=== PATIENT | female | born 1980 | race Caucasian/White ===

== ENCOUNTER 2018-03-04 13:31 | Emergency (ER) | payer MEDICAID ==
[~2018-03-04] VITALS: Ht 172.7 cm; Wt 59.0 kg
== END 2018-03-04 15:25 | disposition home or self-care (01) ==
LOC: ED 13:31
DX: F22 Delusional disorders (principal); Z91.040 Latex allergy status
CPT/HCPCS: 99283

== ENCOUNTER 2019-11-17 15:20 | Emergency (ER) | payer OTHER ==
[~2019-11-17] VITALS: Ht 172.7 cm; Wt 77.1 kg
--- OUTSIDE RECORDS SUMMARY | 2019-11-17 15:22 | XMS ---
PreManage Notification: ARMANDO KING Security Community Engagement Representative Events No recent Security Events currently on file CRITERIA MET - Group Notification CARE PROVIDERS [facility] Current PHONE: [phone] Drea Cross Primary [facility] Current PHONE: [phone] MANJEET LANTIGUANEA [facility] PHONE: Unknown Care Guidelines exist for the following facilities: [facility] ( 04/28/2019 ) Care History Medical/Surgical 10/15/2017 [facility] ADHD (attention deficit hyperactivity disorder) Anxiety Depression PTSD (post-traumatic stress disorder) Substance Use/Overdose 10/15/2017 [facility] Pt has hx of cocaine abuse. E.D. VISIT COUNT (12 MO.) 1 [facility] TOTAL 1 NOTE: Visits indicate total known visits. ED/UCC VISIT TRACKING (12 MO.) 11/17/2019 15:21 [facility] [place] TYPE: Emergency COMPLAINT: - STRANGE FEELING IN HEAD INPATIENT VISIT TRACKING (12 MO.) No inpatient visits to display in this time frame [id number]
[2019-11-17] MEDS ORDERED: RITALIN10 MG PO (15:32)
[2019-11-17] MEDS ORDERED: ABILIFY30 MG PO (15:32)
[2019-11-17] MEDS ORDERED: SEROQUEL XR200 MG PO (15:32)
== END 2019-11-17 16:21 | disposition left against medical advice (07) ==
LOC: ED 15:20
DX: Z53.21 Procedure and treatment not carried out due to patient leaving prior to being seen by health care provider (principal)

== ENCOUNTER 2020-05-22 23:19 | Emergency (ER) | payer OTHER ==
[~2020-05-22] VITALS: Ht 172.7 cm; Wt 68.0 kg
--- OUTSIDE RECORDS SUMMARY | ~2020-05-22 | XMS | Encounter Summary ---
Demographics + + + | Address | [address] | | | [place] [address] | + + + | Home Phone | | + + + | Preferred Language | Unknown | + + + | Marital Status | Single | + + + | Nondenominational Affiliation | NRP | + + + | Race | White | + + + | Ethnic Group | Not or | + + + Author + + + | Author | [facility] | + + + | Organization | [facility] | + + + | Address | Unknown | + + + | Phone | Unavailable | + + + Support + + +---------+ + | Name | Relationship | Address | Phone | + + +---------+ + | Agatha Patrick | ECON | Unknown | | + + +---------+ + Care Team Providers + +------+ + | Care C Developer Name | Role | Phone | + +------+ + | Drea Cross DO | PCP | | + +------+ + Reason for Visit + + + | Reason | Comments | + + + | Psychiatric | | | Evaluation | | + + + AUTH/CERT +--------+--------+ + + + + | Status | Reason | Specialty | Diagnoses / | Referred By | Referred To | | | | | Procedures | Contact | Contact | +--------+--------+ + + + + | | | | | | | +--------+--------+ + + + + Encounter Details +--------+ + + + + | Date | Type | Department | Care Team | Description | +--------+ + + + + | 10/22/ | Emergency | [facility] Emergency | Mariely Luna MD | | | 2017 | | Department [address] [facility] | | | | | [facility] | | | | [facility] | [place], [place] | | | | | [place], [place] | [address] | | | | | [address] | [phone] | | | | | [phone] | | | +--------+ + + + + Social History + +-------+ +--------+------+ | Tobacco Use | Types | Packs/Day | Years | Date | | | | | Used | | + +-------+ +--------+------+ | Never Assessed | | | | | + +-------+ +--------+------+ + + + | Sex Assigned at | Date Recorded | | | | + + + | Not on file | | + + + + + + + | Job Start Date | Occupation | Industry | + + + + | Not on file | Not on file | Not on file | + + + + + + + + | Travel History | Travel Start | Travel End | + + + + + + | No recent travel history available. | + + documented as of this encounter Last Filed Vital Signs + + + + + | Vital Sign | Reading | Time Taken | Comments | + + + + + | Blood Pressure | 112/95 | 10/22/2017 5:40 AM | | | | | PST | | + + + + + | Pulse | 102 | 10/22/2017 5:40 AM | | | | | PST | | + + + + + | Temperature | 36.8 C (98.3 F) | 10/22/2017 5:40 AM | | | | | PST | | + + + + + | Respiratory Rate | 14 | 10/22/2017 5:40 AM | | | | | PST | | + + + + + | Oxygen Saturation | 97% | 10/22/2017 5:40 AM | | | | | PST | | + + + + + | Inhaled Oxygen | - | - | | | Concentration | | | | + + + + + | Weight | 49.9 kg (110 lb) | 10/22/2017 5:40 AM | | | | | PST | | + + + + + | Height | - | - | | + + + + + | Body Mass Index | - | - | | + + + + + documented in this encounter Medications at Time of Discharge + + + +---------+--------+ + | Medication | Sig | Dispensed | Refills | Start | End Date | | | | | | Date | | + + + +---------+--------+ + | acyclovir 200 mg | Take 200 mg by mouth | | 0 | | | | oral capsule | five times daily. | | | | | + + + +---------+--------+ + | ARIPiprazole 5 mg | Take 5 mg by mouth | | 0 | | | | oral tablet | once daily. | | | | | + + + +---------+--------+ + documented as of this encounter Plan of Treatment Not on filedocumented as of this encounter Procedures + +--------+ + + + | Procedure Name | Priori | Date/Time | Associated Diagnosis | Comments | | | ty | | | | + +--------+ + + + | ED INFORMATION | Routin | 10/22/2017 | | Results for this | | EXCHANGE | e | 6:03 AM | | procedure are in the | | | | PST | | results section. | + +--------+ + + + documented in this encounter Results ED INFORMATION EXCHANGE (10/22/2017 6:03 AM PST) + + | Specimen | + + | | + + + + + | Narrative | Performed At | + + + | [id number] This patient has registered at the | [facility] | [facility] Emergency Department For more | MEDICAL | | information visit: | TECHNOLOGIES | | [email or web address] | | | [id number] ED Care Guidelines from [facility] Last | | | Updated: 10/15/17 3:19 PM Care Recommendation: Encourage pt | | | to utilize her PCP. Encourage pt to follow through with previous | | | referrals to PSYCHIATRIC or Rapid Access Center with [facility]. These are | | | guidelines and the provider should exercise clinical judgment when | | | providing care. Care History Substance Abuse/Overdose 10/15/17 | | | 12:00 AM [facility] Pt has hx of cocaine | | | abuse. Medical/Surgical 10/15/17 12:00 AM [facility] | | | [facility] ADHD (attention deficit hyperactivity disorder) Anxiety | | | Depression PTSD (post-traumatic stress disorder) | | | Recent Emergency Department Visit Summary Admit Date Facility City | | | State Type Major Type Diagnoses or Chief Complaint Oct 22, 2017 | | | [facility] [place] Emergency Emergency | | | 10,800. abd pain Oct 22, 2017 [facility] [place] | | | Medical [place]. [place] Emergency Emergency Psych Psych | | | Evaluation Delusional disorders Oct 22, 2017 [facility] | | | [place] Emergency Emergency I THINK I BURST | | | MY SPLEEN, AND DEVICE IN MY HEAD? Oct 02, 2017 [facility] | | | [facility]. [place] Emergency Emergency MHE | | | MHE, Chest pain Paranoid Chest Pain Cocaine | | | dependence with withdrawal Chest pain, unspecified | | | Delusional disorders Sep 30, 2017 [facility] | | | Medical [place] Emergency Emergency FLANK PAIN | | | FLANK PAIN EMS BED Other specified anxiety disorders | | | Unspecified asthma, uncomplicated Immune thrombocytopenic | | | purpura Latex allergy status Personal history of nicotine | | | dependence Major depressive disorder, single episode, | | | unspecified Cocaine abuse, uncomplicated Chest pain, | | | unspecified Sep 28, 2017 [facility] | | | [place] Emergency Emergency MONO EMS TRIAGE Anxiety | | | disorder, unspecified Infectious mononucleosis, unspecified | | | without complication Unspecified asthma, uncomplicated | | | Immune thrombocytopenic purpura Presence of (intrauterine) | | | contraceptive device Personal history of nicotine dependence | | | Sep 24, 2017 [facility]. [place] Emergency | | | Emergency CRISIS / SEEN EARLIER Mental Health Crisis | | | Schizoaffective disorder, depressive type Sep 23, 2017 | | | [facility]. [place] Emergency Emergency | | | COCAINE ABUSE Mental Health Crisis Paranoid Drug | | | Problem Hallucinations Cocaine abuse, uncomplicated | | | Encephalopathy, unspecified Recent Inpatient Visit Summary | | | No recorded inpatient visits. E.D. Visit Count (12 mo.) | | | Facility Visits [facility] 1 [facility] | | | [place] [facility] 1 [facility] | | | [facility] 1 [facility] 2 | | | [facility] 3 Total 9 Note: Visits indicate | | | total known visits. Care Providers Provider PRC Type Phone Fax | | | Service Dates [facility] Primary Care | | | Current [facility] Current | | | The above information is provided for the sole purpose of patient | | | treatment. Use of this information beyond the terms of Data Sharing | | | Memorandum of Understanding and License Agreement is prohibited. In | | | certain cases not all visits may be represented. Consult the | | | aforementioned facilities for additional information. 2018 | | | [employer] - [place], [place] - | | | [email or web address] | | + + + + + | Procedure Note | + + | Service Account, Rtf Results Inbound - 10/22/2017 6:04 AM PST Formatting of this | | note might be different from the original.MILLA?NOTIFICATION?10/22/2017 05:56?ARMANDO KING | | M? patient has registered at the [facility] | | Emergency Department For more information visit: | | [email or web address] ED Care | | [facility]: [facility]/15/17 3:19 PM Care | | Recommendation:Encourage pt to utilize her PCP.Encourage pt to follow through with | | previous referrals [facility] or Rapid Access Center with [facility].These are guidelines and the | | provider should exercise clinical judgment when providing care.Care HistorySubstance | | Abuse/Hrjdnsor43/25/17 12:00 [facility] of [facility] | | abuse.Medical/Tduguatk95/25/17 12:00 [facility] | | [facility] disorder) ?Anxiety ?Depression ?PTSD (post-traumatic stress | | disorder) ?Recent Emergency Department Visit SummaryAdmit Date Facility City State Type | | Major Type Diagnoses or Chief Complaint Oct 22, 2017 [facility] | | [facility]. [place] Emergency Emergency 10,800. abd pain Oct 22, 2017 [facility] | | [facility]. [place] Emergency Emergency Psych Psych Evaluation | | Delusional disorders Oct 22, 2017 [facility] [place] Emergency Emergency | | I THINK I BURST MY SPLEEN, AND DEVICE IN MY HEAD? Oct 02, 2017 [facility] | | [facility] [place] Emergency Emergency MHE MHE, Chest pain Paranoid Chest | | Pain Cocaine dependence with withdrawal Chest pain, unspecified Delusional | | disorders Sep 30, 2017 [facility] [place] Emergency | | Emergency FLANK PAIN FLANK PAIN EMS BED Other specified anxiety disorders | | Unspecified asthma, uncomplicated Immune thrombocytopenic purpura Latex allergy | | status Personal history of nicotine dependence Major depressive disorder, single | | episode, unspecified Cocaine abuse, uncomplicated Chest pain, unspecified Sep 28 | | 2016 [facility] [place] Emergency Emergency [facility] | | TRIAGE Anxiety disorder, unspecified Infectious mononucleosis, unspecified without | | complication Unspecified asthma, uncomplicated Immune thrombocytopenic purpura | | Presence of (intrauterine) contraceptive device Personal history of nicotine | | dependence Sep 24, 2017 [facility]. [place] Emergency Emergency | | CRISIS / SEEN EARLIER Mental Health Crisis Schizoaffective disorder, depressive | | type Sep 23, 2017 [facility]. [place] Emergency Emergency | | COCAINE ABUSE Mental Health Crisis Paranoid Drug Problem Hallucinations | | Cocaine abuse, uncomplicated Encephalopathy, unspecified Recent Inpatient Visit | | SummaryNo recorded inpatient visits. E.D. Visit Count (12 mo.)Facility Visits | | [facility] 1 [facility] 1 [facility] | | [place] 1 [facility] 1 [facility] | | 2 [facility] 3 Total 9 Note: Visits indicate total known visits. | | Care ProvidersProvider [facility] Type Phone Fax Service Dates [facility] | | Primary Care Current [facility] Primary [facility] Current The above | | information is provided for the sole purpose of patient treatment. Use of this | | information beyond the terms of Data Sharing Memorandum of Understanding and License | | Agreement is prohibited. In certain cases not all visits may be represented. Consult the | | aforementioned facilities for additional information. ? 2018 [employer] | | [email or web address] - [place], [place] - [email or web address] | | Delusional disorders | | | |Sep 30, 2017 [facility] [place] Emergency Emergency | | FLANK PAIN | | FLANK PAIN EMS BED | | Other specified anxiety disorders | | Unspecified asthma, uncomplicated | | Immune thrombocytopenic purpura | | Latex allergy status | | Personal history of nicotine dependence | | Major depressive disorder, single episode, unspecified | | Cocaine abuse, uncomplicated | | Chest pain, unspecified | | | |Sep 28, 2017 [facility] [place] Emergency Emergency | | MONO EMS TRIAGE | | Anxiety disorder, unspecified | | Infectious mononucleosis, unspecified without complication | | Unspecified asthma, uncomplicated | | Immune thrombocytopenic purpura | | Presence of (intrauterine) contraceptive device | | Personal history of nicotine dependence | | | |Sep 24, 2017 [facility]. [place] Emergency Emergency | | CRISIS / SEEN EARLIER | | Mental Health Crisis | | Schizoaffective disorder, depressive type | | | |Sep 23, 2017 [facility]. [place] Emergency Emergency | | COCAINE ABUSE | | Mental Health Crisis | | Paranoid | | Drug Problem | | Hallucinations | | Cocaine abuse, uncomplicated | | Encephalopathy, unspecified | | | | | | | |Recent Inpatient Visit Summary | |No recorded inpatient visits. | | | |E.D. Visit Count (12 mo.) | |Facility Visits | |[facility] 1 | |[facility] 1 | |[facility] 1 | |[facility] 1 | |[facility] 2 | |[facility] 3 | |Total 9 | |Note: Visits indicate total known visits. | | | |Care Providers | |Provider PRC Type Phone Fax Service Dates | |[facility] Primary Care Current | |[facility] Primary [facility] Current | | | |The above information is provided for the sole purpose of patient treatment. Use of this in formation beyond the terms of Data Sharing Memorandum of Understanding and License Agreement is prohibited. In | |certain cases not all visits may be represented. Consult the aforementioned facilities for additional information. | |? 2018 [employer] - [place], [place] - | + + + + + + + | Performing | Address | City/State/Zipcode | Phone Number | | Organization | | | | + + + + + | [facility] | [address] | [place], [place] | [phone] | | TECHNOLOGIES | [address] | [address] | | + + + + + documented in this encounter Visit Diagnoses + + | Diagnosis | + + | Hallucination - Primary Hallucinations | + + documented in this encounter"
--- OUTSIDE RECORDS SUMMARY | ~2020-05-22 | XMS | Clinical Summary ---
Demographics + + + | Address | [address] | | | [place] [address] | + + + | Home Phone | | + + + | Preferred Language | Unknown | + + + | Marital Status | Single | + + + | Adventism Affiliation | NRP | + + + | Race | White | + + + | Ethnic Group | Not or | + + + Author + + + | Author | [facility] | + + + | Organization | [facility] | + + + | Address | Unknown | + + + | Phone | Unavailable | + + + Support + + +---------+ + | Name | Relationship | Address | Phone | + + +---------+ + | Agatha Patrick | ECON | Unknown | | + + +---------+ + Care Team Providers + +------+ + | Care Farmworker Pullet Farm Name | Role | Phone | + +------+ + | Drea Cross DO | PCP | | + +------+ + Source Comments HELADIO is fully live on both [facility] Ambulatory and [facility] InPatient.[facility] Allergies + + + + + + | Active Allergy | Reactions | Severity | Noted | Comments | | | | | Date | | + + + + + + | Latex | Hives | | 10/22/19 | | | | | | 18 | | + + + + + + | Peanut | Rash | | 10/22/19 | | | | | | 18 | | + + + + + + Medications + + + +---------+------+------+-------+ | Medication | Sig | Dispensed | Refills | Star | End | Statu | | | | | | t | Date | s | | | | | | Date | | | + + + +---------+------+------+-------+ | acyclovir 200 mg | Take 200 mg by mouth | | 0 | | | Activ | | oral capsule | five times daily. | | | | | e | + + + +---------+------+------+-------+ | ARIPiprazole 5 mg | Take 5 mg by mouth | | 0 | | | Activ | | oral tablet | once daily. | | | | | e | + + + +---------+------+------+-------+ Active Problems Not on file Social History + +-------+ +--------+------+ | Tobacco [...] recent travel history available. | + + Last Filed Vital Signs + + + [...] | | + + + + + Plan of Treatment Not on file Results Not on filefrom Last 3 Months Insurance + +--------+ +--------+ + +--------+ | Payer | Benefi | Subscriber | Effect | Phone | Address | Type | | | t Plan | ID | alex | | | | | | / | | Dates | | | | | | Group | | | | | | + +--------+ +--------+ + +--------+ | [place] | OHP | [id number] | 10/22/19 | [phone] | [address] | | | PLUS | | 18-Pre | 6 | [address] | id | | | OPEN | | sent | | [place], [place] | | | | CARD | | | | [phone] | | + +--------+ +--------+ + +--------+ + +--------+ +--------+ + + | Guarantor Name | Accoun | Relation to | Date | Phone | Billing Address | | | t Type | Patient | of | | | | | | | | | | + +--------+ +--------+ + + | Vlad Buchanan | Person | Self [birth year] | [address] | | | al/Fam | | 1980 | [phone] | [place] [address] | | | max | | | 3 (Home) | | + +--------+ +--------+ + +"
--- OUTSIDE RECORDS SUMMARY | ~2020-05-22 | XMS | Encounter Summary ---
Demographics + + + | Address | [address] | | | [place] [address] | + + + | Home Phone | | + + + | Preferred Language | Unknown | + + + | Marital Status | Single | + + + | Scientologist Affiliation | NRP | + + + | Race | White | + + + | Ethnic Group | Not or | + + + Author + + + | Author | [facility] | + + + | Organization | [facility] | + + + | Address | Unknown | + + + | Phone | Unavailable | + + + Support + + +---------+ + | Name | Relationship | Address | Phone | + + +---------+ + | Agatha Patrick | ECON | Unknown | | + + +---------+ + Care Team Providers + +------+ + | Care Port Cdl A Driver Name | Role | Phone | + [...] + + | 10/22/ | Emergency | [facility] Emergency | Mariely Luna MD | | | 2017 | | Department [address] | [address] [facility] | | | | | [facility] | | | | | [facility] | [place], [place] | | | | | [place], [place] | [address] | | | | | [address] | [phone] | | | | | [phone] | | | +--------+ + + + [...] At | + + + | EDHOLLY05:56ARIEL [id number] This patient has registered at the | [facility] | | [facility] Emergency Department For more | MEDICAL | | information visit: | TECHNOLOGIES | | [email or web address] | | | [id number] ED Care Guidelines from [facility] Last | | | Updated: 10/15/17 3:19 PM Care Recommendation: Encourage pt | | | to utilize her PCP. Encourage pt to follow through with previous | | | referrals to [facility] or [facility] with [facility]. These are | | | guidelines and the provider should exercise clinical judgment when | | | providing care. Care History Substance Abuse/Overdose 10/15/17 | | | 12:00 AM [facility] Pt has hx of cocaine | | | abuse. Medical/Surgical 10/15/17 12:00 AM [facility] | | | [facility] ADHD (attention deficit hyperactivity disorder) Anxiety | | | Depression PTSD (post-traumatic stress disorder) | | | Recent Emergency Department Visit Summary Admit Date Facility City | | | State Type Major Type Diagnoses or Chief Complaint Oct 22, 2017 | | | [facility] [place] Emergency Emergency | | | 10,800. abd pain Oct 22, 2017 [place] | | | Medical [place]. [place] Emergency Emergency Psych Psych | | | Evaluation Delusional disorders Oct 22, 2017 [facility] | | | [place]. [place] Emergency Emergency I THINK I BURST | | | MY SPLEEN, AND DEVICE IN MY HEAD? Oct 02, 2017 [facility] | | | [facility]. [place] Emergency Emergency MHE | | | MHE, Chest pain Paranoid Chest Pain Cocaine | | | dependence with withdrawal Chest pain, unspecified | | | Delusional disorders Sep 30, 2017 [facility] | | | [place] [...] | | | unspecified Sep 28, 2017 [facility] | | | [place] Emergency Emergency [facility] TRIAGE Anxiety | | | disorder, unspecified Infectious mononucleosis, unspecified | | | without complication Unspecified asthma, uncomplicated | | | Immune thrombocytopenic purpura Presence of (intrauterine) | | | contraceptive device Personal history of nicotine dependence | | | Sep 24, 2017 [facility]. [place] Emergency | | | Emergency CRISIS / SEEN EARLIER Mental Health Crisis | | | Schizoaffective disorder, depressive type Sep 23, 2017 | | | [facility]. [place] Emergency Emergency | | | COCAINE ABUSE Mental Health Crisis Paranoid Drug | | | Problem Hallucinations Cocaine abuse, uncomplicated | | | Encephalopathy, unspecified Recent Inpatient Visit Summary | | | No recorded inpatient visits. E.D. Visit Count (12 mo.) | | | Facility Visits [facility] 1 [facility] | | | [place] 1 [facility] 1 [place] | | | [facility] 1 [facility] 2 | | | [facility] 3 Total 9 Note: Visits indicate | | | total known visits. Care Providers Provider PRC Type Phone Fax | | | Service Dates [facility] Primary Care | | | Current [...] for additional information. 2018 | | | [employer] - [place], [place] - | | | [email or web address] | | + + + + + | Procedure Note | + + | Service Account, Rtf Results Inbound - 10/22/2017 6:04 AM PST Formatting of this | | note might be different from the original.MILLA?NOTIFICATION?10/22/2017 05:56?ARMANDO KING | | M? patient has registered at the [facility] | | Emergency Department For more information visit: | | [email or web address] ED Care | | [facility]: 10/15/17 3:19 PM Care | | Recommendation:Encourage pt to utilize her PCP.Encourage pt to follow through with | | previous referrals to [facility] or [facility] with [facility].These are guidelines and the | | provider should exercise clinical judgment when providing care.Care HistorySubstance | | Abuse/Njavcthh29/25/17 12:00 AM [facility] of [facility] | | abuse.Medical/Njorbpxg22/25/17 12:00 AM [facility] ([facility] | | deficit hyperactivity disorder) ?Anxiety ?Depression ?PTSD (post-traumatic stress | | disorder) ?Recent Emergency Department Visit SummaryAdmit Date Facility City State Type | | Major Type Diagnoses or Chief Complaint Oct 22, 2017 [facility] | | [facility]. [place] Emergency Emergency 10,800. abd pain Oct 22, 2017 [place] | | [facility]. [place] Emergency Emergency Psych Psych Evaluation | | Delusional disorders Oct 22, 2017 [facility] [place] Emergency Emergency | | I THINK I BURST MY SPLEEN, AND DEVICE IN MY HEAD? Oct 02, 2017 [facility] | | [facility] [place] Emergency Emergency MHE MHE, [...] pain, unspecified Sep 28 | | 2016 [facility] [place] Emergency Emergency [facility] | | TRIAGE Anxiety disorder, unspecified Infectious mononucleosis, unspecified without | | complication Unspecified asthma, uncomplicated Immune thrombocytopenic purpura | | Presence of (intrauterine) contraceptive device Personal history of nicotine | | dependence Sep 24, 2017 [facility]. [place] Emergency Emergency | | CRISIS / SEEN EARLIER Mental Health Crisis Schizoaffective disorder, depressive | | type Sep 23, 2017 [facility]. [place] Emergency Emergency | | COCAINE ABUSE Mental Health Crisis Paranoid Drug Problem Hallucinations | | Cocaine abuse, uncomplicated Encephalopathy, unspecified Recent Inpatient Visit | | SummaryNo recorded inpatient visits. E.D. Visit Count (12 mo.)Facility Visits | | [facility] 1 [facility] 1 [facility] | | [place] 1 [facility] 1 [facility] | | 2 [facility] 3 Total 9 Note: Visits indicate total known visits. | | Care ProvidersProvider [facility] Type Phone Fax Service Dates [facility] | | Primary Care Current Drea Corss Primary Care Current The above | | information is provided for the sole purpose of patient treatment. Use of this | | information beyond the terms of Data Sharing Memorandum of Understanding and License | | Agreement is prohibited. In certain cases not all visits may be represented. Consult the | | aforementioned facilities for additional information. ? 2018 [employer] | | [email or web address]. - [place], [place] - [email or web address] | | Delusional disorders | | | |Sep 30, 2017 [facility] [place] Emergency Emergency | | [...] unspecified | | | |Sep 28, 2017 [facility] [place] Emergency Emergency | | [facility] | | Anxiety disorder, unspecified | | Infectious mononucleosis, unspecified without complication | | Unspecified asthma, uncomplicated | | Immune thrombocytopenic purpura | | Presence of (intrauterine) contraceptive device | | Personal history of nicotine dependence | | | |Sep 24, 2017 [facility]. [place] Emergency Emergency | | CRISIS / SEEN EARLIER | | Mental Health Crisis | | Schizoaffective disorder, depressive type | | | |Sep 23, 2017 [facility]. [place] Emergency Emergency | | COCAINE ABUSE | | Mental Health Crisis | | Paranoid | | Drug Problem | | Hallucinations | | Cocaine abuse, uncomplicated | | Encephalopathy, unspecified | | | | | | | |Recent Inpatient Visit Summary | |No recorded inpatient visits. | | | |E.D. Visit Count (12 mo.) | |Facility Visits | |[facility] 1 | |[facility] 1 | |[facility] 1 | |[facility] 1 | |[facility] 2 | |[facility] 3 | |Total 9 | |Note: Visits indicate total known visits. | | | |Care Providers | |Provider PRC Type Phone Fax Service Dates | |[facility] Primary Care Current | |Drea Cross [...] facilities for additional information. | |? 2018 [employer]. - [place], [place] - [email or web address] | + + + + + + + | Performing | Address | City/State/Zipcode | Phone Number | | Organization | | | | + + + + + | [facility] | [address] | [place], [place] | [phone] | | TECHNOLOGIES | [address] | [address] | | + + + + + documented in this encounter Visit Diagnoses + + | Diagnosis | + + | Hallucination - Primary Hallucinations | + + documented in this encounter"
--- OUTSIDE RECORDS SUMMARY | ~2020-05-22 | XMS | Clinical Summary ---
Demographics + + + | Address | [address] | | | [place] [address] | + + + | Home Phone | | + + + | Preferred Language | Unknown | + + + | Marital Status | Single | + + + | Judaism Affiliation | NRP | + + + [...] Team Providers + +------+ + | Care Pattern Maker Programer Name | Role | Phone | + +------+ + | Drea Cross DO | PCP | | + +------+ + Source Comments HELADIO is fully live on both [facility] and [facility] InPatient.[facility] Allergies + + + + + [...] | OHP | [id number] | 10/22/19 | [phone] | [address] | [employer] | | | PLUS | | 18-Pre | 6 | [address] | id | | | OPEN | | sent | | [place], [place] | | | | CARD | | | | [address] | | + +--------+ +--------+ + +--------+ + +--------+ +--------+ + + | Guarantor Name | Accoun | Relation to | Date | Phone | Billing Address | | | t Type | Patient | of | | | | | | | | | | + +--------+ +--------+ + + | Vlad Buchanan | Person | Self | [birth year] | [address] | | | al/Fam | | 1980 | [phone] | [place] [address] | | | max | | | 3 (Home) | | + +--------+ +--------+ + +"
[~2020-05-22 23:19] MED LIST: ABILIFY30 MG PO; RITALIN10 MG PO; SEROQUEL XR200 MG PO
--- OUTSIDE RECORDS SUMMARY | 2020-05-22 23:22 | XMS ---
PreManage Notification: ARMANDO KING Security Pmp Events 1 event(s) in the past 18 months Most recent security events: [facility]opement at [facility] 11/17/2019 15:21 - Other Details: PATIENT LWBS. CRITERIA MET - Group Notification - [facility] - Has Care Guidelines - PDMP CARE PROVIDERS [facility] Current PHONE: [phone] Guidelines Source: [facility] [place] Guidelines Date: 11/18/2019 Care Coordination: Currently engaged in mental health services with [facility].\T\nbsp; Please contact [facility] for mental health concerns.\T\nbsp; [place] office:\T\nbsp; [phone]. Additional care guidelines exist for the following facilities: [facility] ( 04/28/2019 ) Care History Medical/Surgical 10/15/2017 [facility] ADHD (attention deficit hyperactivity disorder) Anxiety Depression PTSD (post-traumatic stress disorder) Substance Use/Overdose 10/15/2017 [facility] Pt has hx of cocaine abuse. Rashe[place] VISIT COUNT (12 MO.) 2 [facility] Cristobal TOTAL 2 NOTE: Visits indicate total known visits. ED/UCC VISIT TRACKING (12 MO.) 05/22/2020 23:19 [facility] [place] TYPE: Emergency COMPLAINT: - NAUSEA,VOMITING 11/17/2019 15:[address] [facility] [place] TYPE: Emergency COMPLAINT: - STRANGE FEELING IN HEAD,LEFT WITHOUT BEING SEEN DIAGNOSES: - Procedure and treatment not carried out due to patient leavin INPATIENT VISIT TRACKING (12 MO.) No inpatient visits to display in this time frame [email or web address]
[2020-05-23] MEDS ORDERED: OMEPRAZOLE20 MG PO (05:18)
[2020-05-23] MEDS ORDERED: ZOFRAN4 MG PO (18:15)
[2020-05-23] MEDS ORDERED: CARAFATE1 GM PO (18:15)
== END 2020-05-23 05:38 | disposition home or self-care (01) ==
LOC: ED 23:19
DX: K30 Functional dyspepsia (principal); J45.909 Unspecified asthma, uncomplicated; Z91.010 Allergy to peanuts; Z91.040 Latex allergy status; Z79.899 Other long term (current) drug therapy
CPT/HCPCS: 74177; 76705; 80053; 81001; 83690; 83735; 84703; 85025; 86850; 86900; 86901; 96361; 96375; 96376; 99284-25; C9113; J1170; J1200; J1790; J2405; J2550; J7030; Q9967

== ENCOUNTER 2020-05-23 15:31 | Emergency (ER) | payer OTHER ==
[~2020-05-23] VITALS: Ht 172.7 cm; Wt 68.0 kg
--- OUTSIDE RECORDS SUMMARY | ~2020-05-23 | XMS | Encounter Summary ---
Demographics + + + | Address | [address] | | | [place] [address] | + + + | Home Phone | | + + + | Preferred Language | Unknown | + + + | Marital Status | Single | + + + | Muslim Affiliation | NRP | + + + | Race | White | + + + | Ethnic Group | Not or | + + + Author + + + | Author | [facility] | + + + | Organization | [facility] | + + + | Address | Unknown | + + + | Phone | Unavailable | + + + Support + + +---------+ + | Name | Relationship | Address | Phone | + + +---------+ + | Agatha Patrick | ECON | Unknown | | + + +---------+ + Care Team Providers + +------+ + | Care Supersonic Engineer Name | Role | Phone | + [...] + + | 10/22/ | Emergency | [facility] Emergency | Mariely Luna MD | | | 2017 | | Department [address] | [address] | | | | | [facility] | [facility] | | | | | [facility] | [place], [place] | | | | | [place], [place] | [address] | | | | | [address] | [phone] | | | | | [phone] | | | +--------+ + + + [...] At | + + + | EDHOLLY05:56ARIEL [id number] This patient has registered at the | [facility] | | [facility] Emergency Department For more | MEDICAL | | information visit: | TECHNOLOGIES | | [email or web address] | | | [id number] ED Care Guidelines from [facility] Last | | | Updated: 10/15/17 3:19 PM Care Recommendation: Encourage pt | | | to utilize her PCP. Encourage pt to follow through with previous | | | referrals to [facility] or [facility] with [facility]. These are | | | guidelines and the provider should exercise clinical judgment when | | | providing care. Care History Substance Abuse/Overdose 10/15/17 | | | 12:[address] [facility] Pt has hx of cocaine | | | abuse. Medical/Surgical 10/15/17 12:00 AM [facility] | | | [facility] ADHD (attention deficit hyperactivity disorder) Anxiety | | | Depression PTSD (post-traumatic stress disorder) | | | Recent Emergency Department Visit Summary Admit Date Facility City | | | State Type Major Type Diagnoses or Chief Complaint Oct 22, 2017 | | | [facility] [place] Emergency Emergency | | | 10,800. abd pain Oct 22, 2017 [place] | | | Medical [place]. [place] Emergency Emergency Psych Psych | | | Evaluation Delusional disorders Oct 22, 2017 [facility] | | | [place] Emergency Emergency I THINK I BURST | | | MY SPLEEN, AND DEVICE IN MY HEAD? Oct 02, 2017 [facility] | | | [facility]. [place] Emergency Emergency MHE | | | MHE, Chest pain Paranoid Chest Pain Cocaine | | | dependence with withdrawal Chest pain, unspecified | | | Delusional disorders Sep 30, 2017 [facility] | | | [place] Emergency [...] | | | unspecified Sep 28, 2017 [facility] | | | [place] Emergency Emergency [facility] Anxiety | | | disorder, unspecified Infectious mononucleosis, unspecified | | | without complication Unspecified asthma, uncomplicated | | | Immune thrombocytopenic purpura Presence of (intrauterine) | | | contraceptive device Personal history of nicotine dependence | | | Sep 24, 2017 [facility]. [place] Emergency | | | Emergency CRISIS / SEEN EARLIER Mental Health Crisis | | | Schizoaffective disorder, depressive type Sep 23, 2017 | | | [facility]. [place] Emergency Emergency | | | COCAINE ABUSE Mental Health Crisis Paranoid Drug | | | Problem Hallucinations Cocaine abuse, uncomplicated | | | Encephalopathy, unspecified Recent Inpatient Visit Summary | | | No recorded inpatient visits. E.D. Visit Count (12 mo.) | | | Facility Visits [facility] 1 [facility] | | | [place] 1 [facility] 1 [place] | | | [facility] 1 [facility] 2 | | | [facility] 3 Total 9 Note: Visits indicate | | | total known visits. Care Providers Provider PRC Type Phone Fax | | | Service Dates [facility] Primary Care | | | Current Drea [...] for additional information. 2018 | | | [employer]. - [place], [place] - | | | [email or web address] | | + + + + + | Procedure Note | + + | Service Account, Rtf Results Inbound - 10/22/2017 6:04 AM PST Formatting of this | | note might be different from the original.MILLA?NOTIFICATION?10/22/2017 05:56?ARMANDO KING | | M? patient has registered at the [facility] | | Emergency Department For more information visit: | | [email or web address] ED Care | | [facility]: 10/15/17 3:19 PM Care | | Recommendation:Encourage pt to utilize her PCP.Encourage pt to follow through with | | previous referrals to [facility] or [facility] with [facility].These are guidelines and the | | provider should exercise clinical judgment when providing care.Care HistorySubstance | | Abuse/Aqetoxxy00/25/17 12:[address] [facility] of [facility] | | abuse.Medical/Stwbncyk78/25/17 12:[address] [facility] (attention | | deficit hyperactivity disorder) ?Anxiety ?Depression ?PTSD (post-traumatic stress | | disorder) ?Recent Emergency Department Visit SummaryAdmit Date Facility City State Type | | Major Type Diagnoses or Chief Complaint Oct 22, 2017 [facility] and [facility] | | [facility]. [place] Emergency Emergency 10,800. abd pain Oct 22, 2017 [place] | | [facility]. [place] Emergency Emergency Psych Psych Evaluation | | Delusional disorders Oct 22, 2017 [facility] [place] Emergency Emergency | | I THINK I BURST MY SPLEEN, AND DEVICE IN MY HEAD? Oct 02, 2017 [facility] | | [facility] [place] Emergency Emergency MHE [...] pain, unspecified Sep 28 | | 2016 [facility] [place] Emergency Emergency [facility] | | TRIAGE Anxiety disorder, unspecified Infectious mononucleosis, unspecified without | | complication Unspecified asthma, uncomplicated Immune thrombocytopenic purpura | | Presence of (intrauterine) contraceptive device Personal history of nicotine | | dependence Sep 24, 2017 [facility]. [place] Emergency Emergency | | CRISIS / SEEN EARLIER Mental Health Crisis Schizoaffective disorder, depressive | | type Sep 23, 2017 [facility]. [place] Emergency Emergency | | COCAINE ABUSE Mental Health Crisis Paranoid Drug Problem Hallucinations | | Cocaine abuse, uncomplicated Encephalopathy, unspecified Recent Inpatient Visit | | SummaryNo recorded inpatient visits. E.D. Visit Count (12 mo.)Facility Visits | | [facility] 1 [facility] 1 [facility] | | [place] 1 [facility] 1 [facility] | | [address] [facility] 3 Total 9 Note: Visits indicate total known visits. | | Care ProvidersProvider [facility] Type Phone Fax Service Dates [facility] | | Primary Care Current Drea Cross [...] aforementioned facilities for additional information. ? 2018 [employer] | | [employer]. - [place], [place] - [email or web address] | | Delusional disorders | | | |Sep 30, 2017 [facility] [place] Emergency Emergency | | FLANK [...] unspecified | | | |Sep 28, 2017 [facility] [place] Emergency Emergency | | [facility] | | Anxiety disorder, unspecified | | Infectious mononucleosis, unspecified without complication | | Unspecified asthma, uncomplicated | | Immune thrombocytopenic purpura | | Presence of (intrauterine) contraceptive device | | Personal history of nicotine dependence | | | |Sep 24, 2017 [facility]. [place] Emergency Emergency | | CRISIS / SEEN EARLIER | | Mental Health Crisis | | Schizoaffective disorder, depressive type | | | |Sep 23, 2017 [facility]. [place] Emergency Emergency | | COCAINE ABUSE | | Mental Health Crisis | | Paranoid | | Drug Problem | | Hallucinations | | Cocaine abuse, uncomplicated | | Encephalopathy, unspecified | | | | | | | |Recent Inpatient Visit Summary | |No recorded inpatient visits. | | | |E.D. Visit Count (12 mo.) | |Facility Visits | |[facility] 1 | |[facility] 1 | |[facility] 1 | |[facility] 1 | |[facility] 2 | |[facility] 3 | |Total 9 | |Note: Visits indicate total known visits. | | | |Care Providers | |Provider PRC Type Phone Fax Service Dates | |[facility] Primary Care Current | |Drea Cross Primary Care Current | | | |The above information is provided for the sole purpose of patient treatment. Use of this in formation beyond the terms of Data Sharing Memorandum of Understanding and License Agreement is prohibited. In | |certain cases not all visits may be represented. Consult the aforementioned facilities for additional information. | |? 2018 [employer] - [place], [place] - [email or web address] | + + + + + + + | Performing | Address | City/State/Zipcode | Phone Number | | Organization | | | | + + + + + | [facility] | [address] | [place], [place] | [phone] | | TECHNOLOGIES | [address] | [address] | | + + + + + documented in this encounter Visit Diagnoses + + | Diagnosis | + + | Hallucination - Primary Hallucinations | + + documented in this encounter"
--- OUTSIDE RECORDS SUMMARY | ~2020-05-23 | XMS | Encounter Summary ---
Demographics + + + | Address | [address] | | | [place] [address] | + + + | Home Phone | | + + + | Preferred Language | Unknown | + + + | Marital Status | Single | + + + | Latter-Day Affiliation | NRP | + + + | Race | White | + + + | Ethnic Group | Not or | + + + Author + + + | Author | [facility] | + + + | Organization | [facility] | + + + | Address | Unknown | + + + | Phone | Unavailable | + + + Support + + +---------+ + | Name | Relationship | Address | Phone | + + +---------+ + | Agatha Patrick | ECON | Unknown | | + + +---------+ + Care Team Providers + +------+ + | Care Clinical Services Professional Name | Role | Phone | + [...] + + | 10/22/ | Emergency | [facility] Emergency | Mariely Luna MD | | | 2017 | | Department [address] | [address] [facility] | | | | | [facility] | [facility] | | | | | [facility] | [place], [place] | | | | | [place], [place] | [address] | | | | | [address] | [phone] | | | | | [phone] | | | +--------+ + + + [...] At | + + + | [id number] This patient has registered at the | [facility] | | [facility] Emergency Department For more | MEDICAL | | information visit: | TECHNOLOGIES | | [email or web address] | | | [id number] ED Care Guidelines from [facility] Last | | | Updated: 10/15/17 3:19 PM Care Recommendation: Encourage pt | | | to utilize her PCP. Encourage pt to follow through with previous | | | referrals to [facility] or [facility] with [facility]. These are | | | guidelines and the provider should exercise clinical judgment when | | | providing care. Care History Substance Abuse/Overdose 10/15/17 | | | 12:00 AM [facility] Pt has hx of cocaine | | | abuse. Medical/Surgical 10/15/17 12:00 AM [facility] | | | [facility] ADHD (attention deficit hyperactivity disorder) Anxiety | | | Depression PTSD (post-traumatic stress disorder) | | | Recent Emergency Department Visit Summary Admit Date Facility City | | | State Type Major Type Diagnoses or Chief Complaint Oct 22, 2017 | | | [facility] [place] Emergency Emergency | | | 10,800. abd pain Oct 22, 2017 [place] | | | Medical [place]. [place] Emergency Emergency Psych Psych | | | Evaluation Delusional disorders Oct 22, 2017 [facility] | | | [place]. [place] Emergency Emergency I THINK I BURST | | | MY SPLEEN, AND DEVICE IN MY HEAD? Oct 02, 2017 [facility] | | | [facility]. [place] Emergency Emergency MHE | | | MHE, Chest pain Paranoid Chest Pain Cocaine | | | dependence with withdrawal Chest pain, unspecified | | | Delusional disorders Sep 30, 2017 [facility] | | | Medical [place]. [...] | | | unspecified Sep 28, 2017 [facility] | | | [place] Emergency Emergency [facility] Anxiety | | | disorder, unspecified Infectious mononucleosis, unspecified | | | without complication Unspecified asthma, uncomplicated | | | Immune thrombocytopenic purpura Presence of (intrauterine) | | | contraceptive device Personal history of nicotine dependence | | | Sep 24, 2017 [facility]. [place] Emergency | | | Emergency CRISIS / SEEN EARLIER Mental Health Crisis | | | Schizoaffective disorder, depressive type Sep 23, 2017 | | | [facility]. [place] Emergency Emergency | | | COCAINE ABUSE Mental Health Crisis Paranoid Drug | | | Problem Hallucinations Cocaine abuse, uncomplicated | | | Encephalopathy, unspecified Recent Inpatient Visit Summary | | | No recorded inpatient visits. E.D. Visit Count (12 mo.) | | | Facility Visits [facility] 1 [facility] | | | [place] 1 [facility] 1 [place] | | | [facility] 1 [facility] 2 | | | [facility] 3 Total 9 Note: Visits indicate | | | total known visits. Care Providers Provider PRC Type Phone Fax | | | Service Dates [facility] Primary Care | | | [...] for additional information. 2018 | | | [employer] - [place], [place] - | | | [email or web address] | | + + + + + | Procedure Note | + + | Service Account, Rtf Results Inbound - 10/22/2017 6:04 AM PST Formatting of this | | note might be different from the original.MILLA?NOTIFICATION?10/22/2017 05:56?ARMANDO KING | | M? patient has registered at the [facility] | | Emergency Department For more information visit: | | [email or web address] ED Care | | [facility] Updated: 10/15/17 3:19 PM Care | | Recommendation:Encourage pt to utilize her PCP.Encourage pt to follow through with | | previous referrals to [facility] or [facility] with [facility].These are guidelines and the | | provider should exercise clinical judgment when providing care.Care HistorySubstance | | Abuse/Kpwamwdc82/25/17 12:00 AM [facility] of [facility] | | abuse.Medical/Cqrzobkj85/25/17 12:00 AM [facility] (attention | | deficit hyperactivity disorder) ?Anxiety ?Depression ?PTSD (post-traumatic stress | | disorder) ?Recent Emergency Department Visit SummaryAdmit Date Facility City State Type | | Major Type Diagnoses or Chief Complaint Oct 22, 2017 [facility] | | [facility] [place]. [place] Emergency Emergency 10,800. abd pain Oct 22, 2017 [place] | | [facility]. [place] Emergency Emergency Psych Psych Evaluation | | Delusional disorders Oct 22, 2017 [facility] [place] Emergency Emergency | | I THINK I BURST MY SPLEEN, AND DEVICE IN MY HEAD? Oct 02, 2017 [facility] | | [facility] [place]. [place] Emergency Emergency MHE MHE, Chest [...] pain, unspecified Sep 28 | | 2016 [facility] [place]. [place] Emergency Emergency [facility] | | TRIAGE Anxiety disorder, unspecified Infectious mononucleosis, unspecified without | | complication Unspecified asthma, uncomplicated Immune thrombocytopenic purpura | | Presence of (intrauterine) contraceptive device Personal history of nicotine | | dependence Sep 24, 2017 [facility]. [place] Emergency Emergency | | CRISIS / SEEN EARLIER Mental Health Crisis Schizoaffective disorder, depressive | | type Sep 23, 2017 [facility]. [place] Emergency Emergency | | COCAINE ABUSE Mental Health Crisis Paranoid Drug Problem Hallucinations | | Cocaine abuse, uncomplicated Encephalopathy, unspecified Recent Inpatient Visit | | SummaryNo recorded inpatient visits. E.D. Visit Count (12 mo.)Facility Visits | | [facility] 1 [facility] 1 [facility] | | [place] 1 [facility] 1 [facility] | | 2 [facility] 3 Total 9 Note: Visits indicate total known visits. | | Care ProvidersProvider [facility] Type Phone Fax Service Dates [facility] | | Primary Care Current [...] aforementioned facilities for additional information. ? 2018 [employer] | | [place] - [place], [place] - [email or web address] | | Delusional disorders | | | |Sep 30, 2017 [facility] [place] Emergency Emergency | | FLANK [...] unspecified | | | |Sep 28, 2017 [facility] [place]. [place] Emergency Emergency | | [facility] | | Anxiety disorder, unspecified | | Infectious mononucleosis, unspecified without complication | | Unspecified asthma, uncomplicated | | Immune thrombocytopenic purpura | | Presence of (intrauterine) contraceptive device | | Personal history of nicotine dependence | | | |Sep 24, 2017 [facility]. [place] Emergency Emergency | | CRISIS / SEEN EARLIER | | Mental Health Crisis | | Schizoaffective disorder, depressive type | | | |Sep 23, 2017 [facility]. [place] Emergency Emergency | | COCAINE ABUSE | | Mental Health Crisis | | Paranoid | | Drug Problem | | Hallucinations | | Cocaine abuse, uncomplicated | | Encephalopathy, unspecified | | | | | | | |Recent Inpatient Visit Summary | |No recorded inpatient visits. | | | |E.D. Visit Count (12 mo.) | |Facility Visits | |[facility] 1 | |[facility] 1 | |[facility] 1 | |[facility] 1 | |[facility] 2 | |[facility] 3 | |Total 9 | |Note: Visits indicate total known visits. | | | |Care Providers | |Provider PRC Type Phone Fax Service Dates | |[facility] Primary Care Current | |Drea [...] facilities for additional information. | |? 2018 [employer] - [place], [place] - | + + + + + + + | Performing | Address | City/State/Zipcode | Phone Number | | Organization | | | | + + + + + | [facility] | [address] | [place], [place] | [phone] | | TE[employer] | [address] | [address] | | + + + + + documented in this encounter Visit Diagnoses + + | Diagnosis | + + | Hallucination - Primary Hallucinations | + + documented in this encounter"
--- OUTSIDE RECORDS SUMMARY | ~2020-05-23 | XMS | Clinical Summary ---
Demographics + + + | Address | [address] | | | [place] [address] | + + + | Home Phone | | + + + | Preferred Language | Unknown | + + + | Marital Status | Single | + + + | Jewish Affiliation | NRP | + + + [...] Team Providers + +------+ + | Care Medical Lab Scientist Name | Role | Phone | + +------+ + | Drea Cross DO | PCP | | + +------+ + Source Comments HELADIO is fully live on both [facility] Ambulatory and [facility] InPatient.[facility] Allergies + + + + + [...] | OHP | xxxxxxxx | 10/22/19 | [phone] | [address] | [address] | | | PLUS | | 18-Pre | 6 | [address] | id | | | OPEN | | sent | | [place], [place] | | | | CARD | | | | [address] | | + +--------+ +--------+ + +--------+ + +--------+ +--------+ + + | Guarantor Name | Accoun | Relation to | Date | Phone | Billing Address | | | t Type | Patient | of | | | | | | | | | | + +--------+ +--------+ + + | Vlad Buchanan | Person | Self [birth year] | [address] | | | al/Fam | | 1980 | [phone] | [place] [address] | | | max | | | 3 (Home) | | + +--------+ +--------+ + +"
--- OUTSIDE RECORDS SUMMARY | ~2020-05-23 | XMS | Clinical Summary ---
Demographics + + + | Address | [address] | | | [place] [address] | + + + | Home Phone | | + + + | Preferred Language | Unknown | + + + | Marital Status | Single | + + + | Religion Affiliation | NRP | + + + [...] Team Providers + +------+ + | Care Squad Leader Name | Role | Phone | + +------+ + | Drea Cross DO | PCP | | + +------+ + Source Comments HELADIO is fully live on both [facility] Ambulatory and [facility] InPatient.[facility] Allergies + + + + + + [...] | OHP | xxxxxxxx | 10/22/19 | [phone] | [address] | [employer] | | | PLUS | | 18-Pre | 6 | [phone] | id | | | OPEN | | sent | | [place], [place] | | | | CARD | | | | [phone] | | + +--------+ +--------+ + +--------+ + +--------+ +--------+ + + | Guarantor Name | Accoun | Relation to | Date | Phone | Billing Address | | | t Type | Patient | of | | | | | | | | | | + +--------+ +--------+ + + | Vlad Buchanan | Person | Self [birth year] | [address] | | | al/Fam | | 1980 | [phone] | [place] [address] | | | max | | | 3 (Home) | | + +--------+ +--------+ + +"
[~2020-05-23 15:31] MED LIST changes: +OMEPRAZOLE20 MG PO
--- OUTSIDE RECORDS SUMMARY | 2020-05-23 15:34 | XMS ---
PreManage Notification: ARMANDO KING Security Manager Agency Events 1 event(s) in the past 18 months Most recent security events: Elopement at [facility] 11/17/2019 15:21 - Other Details: PATIENT LWBS. CRITERIA MET - Group Notification - [facility] - Has Care Guidelines - PDMP - [facility] - 2 Visits in 30 Days CARE PROVIDERS Drea Cross Internal Medicine Current PHONE: [phone] Guidelines Source: [facility] [place] Guidelines Date: 11/18/2019 Care Coordination: Currently engaged in mental health services with [facility].\T\nbsp; Please contact [facility] for mental health concerns.\T\nbsp; [place] office:\T\nbsp; [phone]. Additional care guidelines exist for the following facilities: [facility] ( 04/28/2019 ) Care History Medical/Surgical 10/15/2017 [facility] ADHD (attention deficit hyperactivity disorder) Anxiety Depression PTSD (post-traumatic stress disorder) Substance Use/Overdose 10/15/2017 [facility] Pt has hx of cocaine abuse. Rasheeda VISIT COUNT (12 MO.) 3 [facility] Cristobal TOTAL 3 NOTE: Visits indicate total known visits. ED/UCC VISIT TRACKING (12 MO.) 05/23/2020 15:32 [facility] TYPE: Emergency COMPLAINT: - ABD PAIN 05/22/2020 23:19 [facility] [place] TYPE: Emergency COMPLAINT: - NAUSEA,VOMITING 11/17/2019 15:21 [facility] [place] TYPE: Emergency COMPLAINT: - STRANGE FEELING IN HEAD,LEFT WITHOUT BEING SEEN DIAGNOSES: - Procedure and treatment not carried out due to patient leavin INPATIENT VISIT TRACKING (12 MO.) No inpatient visits to display in this time frame [email or web address]
[2020-05-23] MEDS ORDERED: CARAFATE1 GM PO (18:15)
[2020-05-23] MEDS ORDERED: ZOFRAN4 MG PO (18:15)
== END 2020-05-23 18:54 | disposition home or self-care (01) ==
LOC: ED 15:31
DX: K27.9 Peptic ulcer, site unspecified, unspecified as acute or chronic, without hemorrhage or perforation (principal); E87.6 Hypokalemia; R11.2 Nausea with vomiting, unspecified; J45.909 Unspecified asthma, uncomplicated; Z91.010 Allergy to peanuts; Z91.040 Latex allergy status; Z79.899 Other long term (current) drug therapy
CPT/HCPCS: 80053; 83690; 85025; 96374; 99284-25; J1885

== ENCOUNTER 2024-08-01 13:22 | Emergency (ER) | payer OTHER ==
[~2024-08-01] VITALS: Ht 172.7 cm; Wt 56.3 kg
[~2024-08-01 13:22] MED LIST changes: +ABILIFY20 MG PO; +CARAFATE1 GM PO; +SEROQUEL50 MG PO; +ZOFRAN4 MG PO
[2024-08-01] MEDS ORDERED: IBUPROFEN 400 MG TAB PO ONE (13:30)
[2024-08-01] MEDS ORDERED: OLANZapine 10 MG TABDIS PO ONE (13:30)
[2024-08-01 14:07] LABS: BASOPHILS 0.8 % (0-2); EOSINOPHILS 1.4 % (0-6); HEMATOCRIT 42.9 % (35.0-50.0); HEMOGLOBIN 13.9 g/dL (12.0-18.0); LYMPHOCYTES 32.1 % (24-44); MCH 29.3 (27-36); MCHC 32.3 g/dl (30-36); MCV 90.6 fl (81-99); MONOCYTES 7.9 % (0-12); NEUTROPHILS 57.8 % (39-80); PLATELET COUNT 150 K/uL (140-440); RBC 4.74 M/ul (4.3-5.7); RDW 13.3 (10.5-15.0)
[2024-08-01 14:16] LABS: AMPHETAMINES, URINE POSITIVE (NEGATIVE); BARBITURATES, URINE NEGATIVE (NEGATIVE); BENZODIAZEPINE, URINE NEGATIVE (NEGATIVE); BUPRENORPHINE, URINE NEGATIVE (NEGATIVE); CANNABINOID, URINE NEGATIVE (NEGATIVE); COCAINE, URINE NEGATIVE (NEGATIVE); ECSTASY, URINE NEGATIVE (NEGATIVE); FENTANYL, URINE NEGATIVE (NEGATIVE); METHADONE, URINE NEGATIVE (NEGATIVE); OPIATES, URINE NEGATIVE (NEGATIVE); OXYCODONE, URINE NEGATIVE (NEGATIVE); PHENCYCLIDINE, URINE NEGATIVE (NEGATIVE)
[2024-08-01 14:31] LABS: ACETAMINOPHEN 0 ug/mL (10-30); ALBUMIN 3.6 g/dL (3.4-5.0); ALBUMIN/GLOBULIN RATIO 1.06 (1.1-2.4); ALCOHOL, MEDICAL <3 ng/dL (<3); ALKALINE PHOSPHATASE 119 U/L (46-116); ALT (SGPT) 15 U/L (14-59); AST (SGOT) 11 U/L (15-37); BILIRUBIN, TOTAL 0.2 ng/dL (0.2-1.0); BUN/CREATININE RATIO 21.12 (6.0-28.6); CALCIUM 8.9 mg/dL (8.5-10.1); CARBON DIOXIDE 30 mmol/L (21-32); CHLORIDE 106 mmol/L (98-107); CREATININE, SERUM 0.71 mg/dL (0.55-1.02); GLOMERULAR FILTRATION RATE,EST 108 mL/min (>60); SALICYLATE 11.1 mg/dL (2.8-20.0); TSH, 3RD GENERATION 0.985 uIU/mL (0.358-3.740); UREA NITROGEN 15 mg/dL (7-18)
[2024-08-01] MEDS ORDERED: ARIPiprazole 10 MG TAB PO ONE (14:45)
[2024-08-01] MEDS ORDERED: ALBUTEROL SULFATE 8 GM HOME.PACK INH ONE (15:15)
[2024-08-01] MEDS ORDERED: INHALER, ASSIST DEVICES 1 EACH SPACER MISC ONE (15:15)
[2024-08-03] MEDS ORDERED: HALOPERIDOL LACTATE 5 MG/ML VIAL IM ONE (10:45)
[2024-08-03] MEDS ORDERED: LORazepam 2 MG/ML VIAL IM ONE (10:45)
[2024-08-03] MEDS ORDERED: diphenhydrAMINE HCL 50 MG/ML VIAL IM ONE (10:45)
[2024-08-03] MEDS ORDERED: LORazepam 1 MG TAB PO ONE (10:45)
[2024-08-03 10:54] VITALS: BP 101/68
--- NOTE | 2024-08-04 07:47 | EKG ---
[facility] [address] [facility] [place] [address] Signed Normal sinus rhythm Incomplete right bundle branch block Borderline ECG No previous ECGs available Confirmed by Luis Enrique Guillory MD () on 08/04/2024 7:47:08 AM Electronically Signed By: LUIS ENRIQUE GUILLORY MD 08/04/24 0747 PATIENT NAME: ARMANDO KING Electrocardiogram DATE OF : 82 PHYSICIAN: LUIS ENRIQUE GUILLORY MD REPORT #: [id number] REPORT IS CONFIDENTIAL AND NOT TO BE RELEASED WITHOUT AUTHORIZATION
== END 2024-08-03 10:56 ==
LOC: ED 13:22
PROVIDERS: Emergency Medicine
DX: Z00.8 Encounter for other general examination (principal); Z91.010 Allergy to peanuts; Z91.040 Latex allergy status; Z11.52 Encounter for screening for COVID-19
CPT/HCPCS: 36415; 80053; 80307; 84443; 84703; 85025; 85060; 96372; 99285; A9270; G0480; J1200; J1630; J2060; U0002

== ENCOUNTER 2024-09-16 13:56 | Emergency (ER) | payer OTHER ==
[~2024-09-16] VITALS: Ht 172.7 cm; Wt 65.0 kg
[2024-09-16] MEDS ORDERED: HALOPERIDOL LACTATE 5 MG/ML VIAL IM ONE (14:00)
[2024-09-16] MEDS ORDERED: diphenhydrAMINE HCL 50 MG/ML VIAL IM ONE (14:00)
[2024-09-16] MEDS ORDERED: LORazepam 2 MG/ML VIAL IM ONE (14:00)
[2024-09-16 14:39] LABS: BASOPHILS 1.1 % (0-2); EOSINOPHILS 1.8 % (0-6); HEMATOCRIT 38.1 % (35.0-50.0); HEMOGLOBIN 12.7 g/dL (12.0-18.0); LYMPHOCYTES 40.1 % (24-44); MCH 29.7 (27-36); MCHC 33.3 g/dl (30-36); MONOCYTES 6.4 % (0-12); NEUTROPHILS 50.6 % (39-80); PLATELET COUNT 173 K/uL (140-440); RBC 4.28 M/ul (4.3-5.7); RDW 13.4 (10.5-15.0)
[2024-09-16 14:58] LABS: ACETAMINOPHEN 0 ug/mL (10-30); ALBUMIN 3.4 g/dL (3.4-5.0); ALBUMIN/GLOBULIN RATIO 1.03 (1.1-2.4); ALCOHOL, MEDICAL <3 ng/dL (<3); ALKALINE PHOSPHATASE 162 U/L (46-116); ALT (SGPT) 24 U/L (14-59); ANION GAP 13.5 (7-21); AST (SGOT) 16 U/L (15-37); BILIRUBIN, TOTAL 0.2 ng/dL (0.2-1.0); BUN/CREATININE RATIO 9.18 (6.0-28.6); CALCIUM 8.6 mg/dL (8.5-10.1); CARBON DIOXIDE 25 mmol/L (21-32); CHLORIDE 106 mmol/L (98-107); CREATININE, SERUM 0.98 mg/dL (0.55-1.02); GLOMERULAR FILTRATION RATE,EST 73 mL/min (>60); POTASSIUM 3.5 mmol/L (3.5-5.1); PROTEIN, TOTAL 6.7 g/dL (6.4-8.2); SALICYLATE 6.5 mg/dL (2.8-20.0); TSH, 3RD GENERATION 0.506 uIU/mL (0.358-3.740); UREA NITROGEN 9 mg/dL (7-18)
[2024-09-17 06:49] LABS: BILIRUBIN, URINE NEGATIVE (negative); BLOOD/HGB, URINE NEGATIVE (Negative); KETONE, URINE NEGATIVE (Negative); LEUK ESTERASE, URINE NEGATIVE (negative); NITRITE, URINE NEGATIVE (negative)
[2024-09-17 06:50] LABS: AMPHETAMINES, UR POSITIVE (NEGATIVE); BENZODIAZEPINES, UR POSITIVE (NEGATIVE)
[2024-09-17 06:51] LABS: BARBITURATES, UR NEGATIVE (NEGATIVE); BUPRENORPHINE,UR NEGATIVE (NEGATIVE); COCAINE, UR NEGATIVE (NEGATIVE); MARIJUANA (THC), UR NEGATIVE (NEGATIVE); MDMA, UR NEGATIVE (NEGATIVE); METHADONE, UR NEGATIVE (NEGATIVE); METHAMPHETAMINE, UR POSITIVE (NEGATIVE); OPIATES, UR NEGATIVE (NEGATIVE); OXYCODONE, UR NEGATIVE (NEGATIVE); PHENCYCLIDINE, UR NEGATIVE (NEGATIVE); TRICYCLIC ANTIDEPRESSANT, UR NEGATIVE (NEGATIVE)
[2024-09-17] MEDS ORDERED: dilTIAZem HCL 120 MG CAPCR PO ONE (08:00)
[2024-09-17 16:07] LABS: INFLUENZA B NAA NEGATIVE (NEGATIVE); RESPIRATORY SYNCYTIAL VIR NAA NEGATIVE (NEGATIVE)
[2024-09-18] MEDS ORDERED: NICOTINE POLACRILEX 4 MG LOZENGE BUCCAL PRN (14:00)
--- NOTE | 2024-09-18 14:06 | EKG ---
[facility] [address] [facility] [place] [address] Signed Normal sinus rhythm Incomplete right bundle branch block Cannot rule out Anteroseptal infarct , age undetermined Abnormal ECG When compared with ECG of 02-AUG-2024 12:55, Minimal criteria for Anteroseptal infarct are now present Confirmed by Luis Enrique Guillory MD () on 09/18/2024 2:06:24 PM Electronically Signed By: LUIS ENRIQUE GUILLORY MD 09/18/24 1406 PATIENT NAME: ARMANDO KING Electrocardiogram DATE OF : 82 PHYSICIAN: LUIS ENRIQUE GUILLORY MD REPORT #: [id number] REPORT IS CONFIDENTIAL AND NOT TO BE RELEASED WITHOUT AUTHORIZATION
[2024-09-18] MEDS ORDERED: IBUPROFEN 600 MG TAB PO ONE (16:15)
[2024-09-18] MEDS ORDERED: ARIPiprazole 10 MG TAB PO SCH (20:16)
[2024-09-18] MEDS ORDERED: OLANZapine 10 MG TABDIS PO ONE (20:30)
[2024-09-18] MEDS ORDERED: ASPIRIN 81 MG CHEW PO ONE (20:30)
[2024-09-18] MEDS ORDERED: QUETIAPINE FUMARATE 100 MG TAB PO SCH (21:00)
[2024-09-19] MEDS ORDERED: QUETIAPINE FUMARATE 100 MG TAB PO SCH (09:00)
[2024-09-19 16:16] VITALS: BP 110/73
== END 2024-09-19 16:16 ==
LOC: ED 13:56
PROVIDERS: Emergency Medicine
DX: F20.9 Schizophrenia, unspecified (principal); Z79.899 Other long term (current) drug therapy; Z91.010 Allergy to peanuts; Z91.040 Latex allergy status; Z11.52 Encounter for screening for COVID-19
CPT/HCPCS: 36415; 80053; 80307; 81003; 84443; 84703; 85025; 87502; 96372; 99285; A9270; G0480; J1200; J1630; J2060; U0002

== ENCOUNTER 2024-12-22 13:21 | Emergency (ER) | payer OTHER ==
[~2024-12-22] VITALS: Ht 172.7 cm; Wt 64.9 kg
[2024-12-22 14:52] LABS: BILIRUBIN, URINE NEGATIVE (negative); BLOOD/HGB, URINE NEGATIVE (Negative); KETONE, URINE TRACE (Negative); LEUK ESTERASE, URINE NEGATIVE (negative); NITRITE, URINE NEGATIVE (negative)
[2024-12-22 14:55] LABS: BASOPHILS 0.8 % (0-2); EOSINOPHILS 1.7 % (0-6); HEMATOCRIT 39.5 % (35.0-50.0); HEMOGLOBIN 13.1 g/dL (12.0-18.0); LYMPHOCYTES 21.4 % (24-44); MCH 29.3 (27-36); MCHC 33.1 g/dl (30-36); MCV 88.5 fl (81-99); MONOCYTES 6.9 % (0-12); NEUTROPHILS 69.2 % (39-80); PLATELET COUNT 169 K/uL (140-440); RBC 4.46 M/ul (4.3-5.7)
[2024-12-22 15:11] LABS: AMPHETAMINES, URINE POSITIVE (NEGATIVE); BARBITURATES, URINE NEGATIVE (NEGATIVE); BENZODIAZEPINE, URINE NEGATIVE (NEGATIVE); BUPRENORPHINE, URINE NEGATIVE (NEGATIVE); CANNABINOID, URINE NEGATIVE (NEGATIVE); COCAINE, URINE NEGATIVE (NEGATIVE); ECSTASY, URINE POSITIVE (NEGATIVE); FENTANYL, URINE NEGATIVE (NEGATIVE); METHADONE, URINE NEGATIVE (NEGATIVE); OPIATES, URINE NEGATIVE (NEGATIVE); OXYCODONE, URINE NEGATIVE (NEGATIVE); PHENCYCLIDINE, URINE NEGATIVE (NEGATIVE)
[2024-12-22] MEDS ORDERED: OLANZapine 10 MG TABDIS PO ONE (15:15)
[2024-12-22 15:18] LABS: ACETAMINOPHEN 0 ug/mL (10-30); ALBUMIN 3.7 g/dL (3.4-5.0); ALBUMIN/GLOBULIN RATIO 1.16 (1.1-2.4); ALCOHOL, MEDICAL <3 ng/dL (<3); ALKALINE PHOSPHATASE 134 U/L (46-116); ALT (SGPT) 18 U/L (14-59); ANION GAP 10.3 (7-21); AST (SGOT) 15 U/L (15-37); BILIRUBIN, TOTAL 0.3 mg/dL (0.2-1.0); BUN/CREATININE RATIO 23.43 (6.0-28.6); CALCIUM 8.7 mg/dL (8.5-10.1); CARBON DIOXIDE 28 mmol/L (21-32); CHLORIDE 105 mmol/L (98-107); CREATININE, SERUM 0.64 mg/dL (0.55-1.02); GLOMERULAR FILTRATION RATE,EST 112 mL/min (>60); POTASSIUM 4.3 mmol/L (3.5-5.1); PROTEIN, TOTAL 6.9 g/dL (6.4-8.2); TSH, 3RD GENERATION 0.802 uIU/mL (0.358-3.740); UREA NITROGEN 15 mg/dL (7-18)
[2024-12-22 15:51] LABS: CORONAVIRUS COVID-19 AG NEGATIVE (NEGATIVE); INFLUENZA A AG NEGATIVE (NEGATIVE); INFLUENZA B AG NEGATIVE (NEGATIVE)
[2024-12-23] MEDS ORDERED: ACETAMINOPHEN 325 MG TAB PO ONE (16:00)
[2024-12-23] MEDS ORDERED: OLANZapine 10 MG TABDIS PO ONE (17:30)
[2024-12-23] MEDS ORDERED: IBUPROFEN 600 MG TAB PO ONE (17:30)
[2024-12-23] MEDS ORDERED: OLANZapine 10 MG TABDIS PO SCH (21:00)
[2024-12-24] MEDS ORDERED: IBUPROFEN 600 MG TAB PO ONE (08:30)
[2024-12-24 13:59] VITALS: BP 115/77
--- NOTE | 2024-12-24 19:41 | EKG ---
[facility] [address] [facility] [place] [address] Signed Normal sinus rhythm Normal ECG When compared with ECG of 18-SEP-2024 10:43, Minimal criteria for Anteroseptal infarct are no longer present Nonspecific T wave abnormality no longer evident in Anterior leads Confirmed by Jeremy Esparza MD ([id number]) on 12/24/2024 7:40:58 PM Electronically Signed By: JEREMY ESPARZA MD 12/24/241940 PATIENT NAME: ARMANDO KING Electrocardiogram DATE OF : [birth year] PHYSICIAN: JEREMY ESPARZA MD REPORT #: [id number] REPORT IS CONFIDENTIAL AND NOT TO BE RELEASED WITHOUT AUTHORIZATION
== END 2024-12-24 14:28 | disposition short-term general hospital (02) ==
LOC: ED 13:21
PROVIDERS: Emergency Medicine
DX: F23 Brief psychotic disorder (principal); J45.909 Unspecified asthma, uncomplicated; Z91.010 Allergy to peanuts; Z91.040 Latex allergy status; Z79.899 Other long term (current) drug therapy
CPT/HCPCS: 36415; 80053; 80307; 81003; 84443; 84703; 85025; 93005; 93010; A9270; G0480

== ENCOUNTER 2025-01-23 15:21 | Emergency (ER) | payer OTHER ==
[~2025-01-23] VITALS: Ht 172.7 cm; Wt 65.7 kg
[~2025-01-23 15:21] MED LIST changes: -SEROQUEL XR200 MG PO; +SEROQUEL200 MG PO
[2025-01-23 16:21] LABS: BASOPHILS 0.5 % (0-2); EOSINOPHILS 0.8 % (0-6); HEMATOCRIT 42.4 % (35.0-50.0); HEMOGLOBIN 13.9 g/dL (12.0-18.0); LYMPHOCYTES 17.5 % (24-44); MCH 28.5 (27-36); MCHC 32.9 g/dl (30-36); MCV 86.8 fl (81-99); MONOCYTES 6.8 % (0-12); NEUTROPHILS 74.4 % (39-80); PLATELET COUNT 172 K/uL (140-440); RBC 4.89 M/ul (4.3-5.7); RDW 13.2 (10.5-15.0)
[2025-01-23 16:46] LABS: ALBUMIN 4.1 g/dL (3.4-5.0); ALBUMIN/GLOBULIN RATIO 1.17 (1.1-2.4); ALCOHOL, MEDICAL <3 ng/dL (<3); ALKALINE PHOSPHATASE 110 U/L (46-116); ALT (SGPT) 20 U/L (14-59); AST (SGOT) 14 U/L (15-37); BILIRUBIN, TOTAL 0.7 mg/dL (0.2-1.0); BUN/CREATININE RATIO 10.66 (6.0-28.6); CARBON DIOXIDE 29 mmol/L (21-32); CHLORIDE 101 mmol/L (98-107); CREATININE, SERUM 0.75 mg/dL (0.55-1.02); GLOMERULAR FILTRATION RATE,EST 101 mL/min (>60); PROTEIN, TOTAL 7.6 g/dL (6.4-8.2); TSH, 3RD GENERATION 2.445 uIU/mL (0.358-3.740); UREA NITROGEN 8 mg/dL (7-18)
[2025-01-23] MEDS ORDERED: BENZTROPINE ME0.5 MG PO (17:48)
[2025-01-23] MEDS ORDERED: TOPIRAMATE25 MG PO (17:49)
[2025-01-23] MEDS ORDERED: HALOPERIDOL5 MG PO (17:49)
[2025-01-23] MEDS ORDERED: ARISTADA882 MG/3.2 IM (17:53)
[2025-01-23] MEDS ORDERED: ARIPiprazole 10 MG TAB PO SCH (21:00)
[2025-01-23] MEDS ORDERED: BENZTROPINE MESYLATE 1 MG TAB PO SCH (21:00)
[2025-01-23] MEDS ORDERED: haloperidoL 5 MG TAB PO SCH (21:00)
[2025-01-23] MEDS ORDERED: QUETIAPINE FUMARATE 100 MG TAB PO SCH (21:00)
[2025-01-24 07:03] LABS: BILIRUBIN, URINE NEGATIVE (negative); BLOOD/HGB, URINE NEGATIVE (Negative); KETONE, URINE NEGATIVE (Negative); LEUK ESTERASE, URINE NEGATIVE (negative); NITRITE, URINE NEGATIVE (negative); PH, URINE 6.5 (5-7)
[2025-01-24 07:16] LABS: AMPHETAMINES, URINE POSITIVE (NEGATIVE); BARBITURATES, URINE NEGATIVE (NEGATIVE); BENZODIAZEPINE, URINE NEGATIVE (NEGATIVE); BUPRENORPHINE, URINE NEGATIVE (NEGATIVE); CANNABINOID, URINE NEGATIVE (NEGATIVE); COCAINE, URINE POSITIVE (NEGATIVE); ECSTASY, URINE POSITIVE (NEGATIVE); FENTANYL, URINE NEGATIVE (NEGATIVE); METHADONE, URINE NEGATIVE (NEGATIVE); OPIATES, URINE NEGATIVE (NEGATIVE); OXYCODONE, URINE NEGATIVE (NEGATIVE); PHENCYCLIDINE, URINE NEGATIVE (NEGATIVE)
[2025-01-24] MEDS ORDERED: BENZTROPINE MESYLATE 1 MG TAB ONE (13:05)
[2025-01-25 14:50] VITALS: BP 100/67
== END 2025-01-25 14:53 ==
LOC: ED 15:21
PROVIDERS: Emergency Medicine
DX: F29 Unspecified psychosis not due to a substance or known physiological condition (principal); J45.909 Unspecified asthma, uncomplicated; Z91.040 Latex allergy status; Z91.010 Allergy to peanuts; Z79.899 Other long term (current) drug therapy
CPT/HCPCS: 36415; 80053; 80307; 81003; 84443; 84703; 85025; A9270; G0480